=== PATIENT | female | born 2000 | race Two or more races ===

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

== ENCOUNTER 2023-05-19 09:29 | Emergency (ER) | payer BC ==
[~2023-05-19] VITALS: Ht 165.1 cm; Wt 73.0 kg
[2023-05-19 09:31] VITALS: PULSE 88; RESP 18
[2023-05-19 09:33] VITALS: BP 117/75; TEMP 97.9; O2SAT 100
[2023-05-19] MEDS ORDERED: PENICILLIN G BENZATHINE 2,400,000 UNITS/4ML SYR IM ONE (10:30)
[2023-05-19] MEDS ORDERED: LIDOCAINE HCL 1% 20ML VIAL (Pyxis) INJ INFIL ONE (10:30)
[2023-05-19] MEDS ORDERED: DOXY100C5 MT (11:02)
[2023-05-19] MEDS ORDERED: DOXYCYCLINE HYCLATE 100MG CAPSULE PO ONE (11:30)
== END 2023-05-19 12:06 | disposition home or self-care (01) ==
LOC: ER 09:41
DX: A53.9 Syphilis, unspecified (principal)
CPT/HCPCS: 99282; 81025; J0561; J3490

== ENCOUNTER 2023-10-06 19:51 | Emergency (ER) | payer BC ==
[~2023-10-06] VITALS: Ht 162.6 cm; Wt 63.0 kg
[~2023-10-06 19:51] MED LIST: DOXY100C5 MT
[2023-10-06 20:05] VITALS: O2SAT 99
[2023-10-06] MEDS ORDERED: CEFTRIAXONE SODIUM 500 MG/VIAL IM ONE (20:15)
[2023-10-06] MEDS ORDERED: LIDOCAINE HCL 1% 20ML VIAL (Pyxis) INJ INFIL ONE (21:00)
[2023-10-06] MEDS ORDERED: LIDOCAINE HCL 1% 20ML VIAL (Pyxis) INJ INFIL SCH (21:30)
[2023-10-06] MEDS ORDERED: CEFTRIAXONE SODIUM 500 MG/VIAL IM SCH (21:30)
[2023-10-06 21:47] LABS: HCG SCREEN NEGATIVE
[2023-10-06 21:48] LABS: CLARITY URINE CLEAR (CLEAR); COLOR URINE YELLOW (YELLOW); GLUCOSE URINE NEGATIVE (NEGATIVE); KETONES URINE NEGATIVE (NEGATIVE); LEUKOCYTE ESTERASE URINE NEGATIVE (NEGATIVE); NITRITE URINE NEGATIVE (NEGATIVE); OCCULT BLOOD URINE TRACE (NEGATIVE); PROTEIN URINE NEGATIVE (NEGATIVE); SPECIFIC GRAVITY URINE 1.004 (1.005-1.030); UROBILINOGEN URINE 0.2 E.U./dL (0.2-1.0)
[2023-10-06 21:50] LABS: YEAST URINE NONE SEEN
[2023-10-06 22:03] LABS: BACTERIA URINE NONE SEEN; RBC URINE 0-2 /hpf (0-2); SQUAMOUS EPITHELIAL CELL URINE RARE /lpf (RARE/1+); WBC URINE 0-2 /hpf (0-2)
[2023-10-06] MEDS ORDERED: DOXY100C5 MT (22:09)
[2023-10-06 22:28] VITALS: BP 135/83; PULSE 95; RESP 20; TEMP 98.1
[2023-10-09 04:07] LABS: CHLAMYDIA TRACHOMATIS NAA Negative (Negative); NEISSERIA GONORRHOEAE NAA Positive (Negative)
== END 2023-10-06 22:29 | disposition home or self-care (01) ==
LOC: ER 19:51
DX: N89.8 Other specified noninflammatory disorders of vagina (principal); Z20.2 Contact with and (suspected) exposure to infections with a predominantly sexual mode of transmission
CPT/HCPCS: 81003; 81025; 84703; 87210; 87491; 87529; 87591; 96372; 99284; J0696; J3490

== ENCOUNTER 2024-06-27 14:07 | Emergency (ER) | payer BC ==
[~2024-06-27] VITALS: Ht 162.6 cm; Wt 45.8 kg
[2024-06-27 15:01] LABS: CHLORIDE 107 mEq/L (98-107); POTASSIUM 3.3 mEq/L (3.5-5.1); SODIUM 139 mEq/L (136-145)
[2024-06-27 15:02] LABS: BASOPHILS % 0.2 % (0.0-2.0); CALCIUM 9.5 mg/dL (8.7-10.4); CARBON DIOXIDE 29 mEq/L (21-32); EOSINOPHILS % 1.7 % (0.0-5.0); HEMATOCRIT. 40.6 % (36.0-48.0); HEMOGLOBIN. 13.2 g/dL (12.0-16.0); MEAN CORPUSCULAR HEMOGLOBIN 28.2 pg (28.0-32.0); MEAN CORPUSCULAR HGB CONC 32.6 g/dL (31.0-37.0); MEAN CORPUSCULAR VOLUME 86.6 fL (81.0-99.0); MEAN PLATELET VOLUME 7.8 fl (7.4-10.4); MONOCYTES % 6.2 % (2.0-8.0); NEUTROPHILS % 52.9 % (40.0-76.0); PLATELET 202 x1000/uL (130-400); RED BLOOD CELL COUNT 4.69 mill/uL (4.2-5.4); RED CELL DISTRIBUTION WIDTH 14.2 % (11.6-14.6); WHITE BLOOD COUNT 6.9 x1000/uL (4.5-11.0)
[2024-06-27 15:07] LABS: CREATININE 0.8 mg/dL (0.6-1.0); GLUCOSE 79 mg/dL (70-105); UREA NITROGEN BLOOD 12 mg/dL (9-23)
[2024-06-27 15:14] LABS: ETHANOL BLOOD < 10 mg/dL (<10)
[2024-06-27] MEDS: LORAZEPAM 2MG/ML INJ IM ONE (15:36)
[2024-06-27] MEDS: HALOPERIDOL LACTATE 5MG/ML VIAL IM ONE (15:36)
[2024-06-27 16:02] LABS: CLARITY URINE CLEAR (CLEAR); COLOR URINE YELLOW (YELLOW); GLUCOSE URINE NEGATIVE (NEGATIVE); KETONES URINE NEGATIVE (NEGATIVE); LEUKOCYTE ESTERASE URINE NEGATIVE (NEGATIVE); NITRITE URINE NEGATIVE (NEGATIVE); OCCULT BLOOD URINE NEGATIVE (NEGATIVE); PH URINE 6.5 (4.5-8.0); PROTEIN URINE NEGATIVE (NEGATIVE); SPECIFIC GRAVITY URINE 1.024 (1.005-1.030)
[2024-06-27 16:15] VITALS: O2SAT 100
[2024-06-27 16:17] LABS: *AMPHETAMINES SCREEN URINE PRESUMPTIVE POSITIVE (NEGATIVE); *BARBITURATES SCREEN URINE NEGATIVE (NEGATIVE); *BENZODIAZEPINES SCREEN URINE PRESUMPTIVE POSITIVE (NEGATIVE); *COCAINE SCREEN URINE NEGATIVE (NEGATIVE); METHADONE URINE SCREEN NEGATIVE (NEGATIVE); OPIATES URINE SCREEN NEGATIVE (NEGATIVE); PHENCYCLIDINE URINE SCREEN NEGATIVE (NEGATIVE)
[2024-06-27 16:18] LABS: CANNABINOID URINE SCREEN PRESUMPTIVE POSITIVE (NEGATIVE); ECSTASY MDMA SCREEN URINE CONF.TEST INDICATED (NEGATIVE)
[2024-06-27] MEDS: POTASSIUM CHLORIDE 20MEQ TABLET SR PO ONE (17:20)
[2024-06-28] MEDS: MIDAZOLAM HCL 2 MG/2 ML VIAL IM ONE (16:15)
[2024-06-28 18:00] VITALS: BP 106/60; PULSE 58; RESP 16; TEMP 98.5
[2024-06-28] MEDS ORDERED: QUETIAPINE FUMARATE 50MG TABLET PO SCH (21:00)
[2024-07-01 04:09] LABS: CHLAMYDIA TRACHOMATIS NAA Negative (Negative); NEISSERIA GONORRHOEAE NAA Negative (Negative)
== END 2024-06-28 18:22 ==
LOC: ER 14:10
DX: R45.851 Suicidal ideations (principal); Z20.822 Contact with and (suspected) exposure to COVID-19; Z98.890 Other specified postprocedural states
CPT/HCPCS: 87491; 87591; 80305; 80048; 81003; 81025; 80320; 85025; 86592; 86593; 36415; 96372 ×2; 99285; J1630; J2060; Z7610; J2250; G0480

== ENCOUNTER 2024-10-21 11:41 | Emergency (ER) | payer MEDICAID ==
[~2024-10-21] VITALS: Ht 154.9 cm; Wt 50.0 kg
[2024-10-21 11:47] VITALS: O2SAT 99
[2024-10-21] MEDS ORDERED: MUPI22OI2 TP (14:04)
[2024-10-21] MEDS ORDERED: DOXY100C74 MT (14:04)
[2024-10-21] MEDS: PENICILLIN G BENZATHINE 2,400,000 UNITS/4ML SYR IM ONE (14:37)
[2024-10-21 14:45] VITALS: BP 121/60; PULSE 89; RESP 18; TEMP 37.05852; O2SAT 99
== END 2024-10-21 14:47 | disposition home or self-care (01) ==
LOC: ER 11:49
DX: A53.9 Syphilis, unspecified (principal); A49.02 Methicillin resistant Staphylococcus aureus infection, unspecified site; F12.90 Cannabis use, unspecified, uncomplicated; F15.90 Other stimulant use, unspecified, uncomplicated; Z79.899 Other long term (current) drug therapy
CPT/HCPCS: 81025; 96372; 99283; J0561; Z7610